=== PATIENT | female | born 1990 | race African-American/Black ===

== ENCOUNTER 2018-03-26 13:39 | Emergency (ER) | payer MEDICAID ==
[~2018-03-26] VITALS: Ht 162.6 cm; Wt 90.7 kg
[2018-03-26] MEDS ORDERED: SODIUM CHLORIDE 0.9% 500 ML IVB ONE (13:48)
[2018-03-26] MEDS ORDERED: MORPHINE SULFATE 10 MG/ML INJ 1ML SDV IV ONE (14:00)
[2018-03-26] MEDS ORDERED: ONDANSETRON HCL 4 MG/2 ML VIAL IV ONE (14:00)
[2018-03-26 15:25] LABS: Basophils # (auto) 0.1 uL; Basophils % (auto) 0.4 % (0.0-2.0); Eosinophils # (auto) 0 uL; Lymphocytes # (auto) 1.1 uL; Monocytes # (auto) 0.4 uL; Monocytes % (auto) 2.5 % (0.0-12.0)
[2018-03-26 15:27] LABS: Eosinophils % (auto) 0.1 % (0.0-7.0); Hematocrit 30.2 % (36.0-46.0); Hemoglobin 9.2 g/dL (12.2-16.2); Lymphocytes % (auto) 7.1 % (10.0-50.0); Mean Corpuscular Hemoglobin 22.5 pg (28.0-32.0); Mean Corpuscular Hgb Conc. 30.5 g/dL (32.0-36.0); Mean Corpuscular Volume 73.7 fL (80.0-100.0); Neutrophils # (auto) 14.5 uL; Neutrophils % (auto) 89.9 % (37.0-80.0); Nucleated Red Blood Cells % 0.1 %; Platelet Count (auto) 473 10^3/uL (140-450); Red Blood Cells 4.09 10^6/uL (4.0-5.20); Red Cell Distribution Width 19.2 % (11.8-14.3); White Blood Cell 16.1 10^3/uL (4.4-10.8)
[2018-03-26 15:48] LABS: Potassium 3.8 mmol/L (3.5-5.1)
[2018-03-26 15:55] LABS: Albumin 3.6 g/dL (3.4-5.0); BUN/Creatinine Ratio 12.2; Bilirubin, Total 0.3 mg/dL (0.2-1.0); Calcium 8.8 mg/dL (8.5-10.1); Total Protein 8.7 g/dL (6.4-8.2)
[2018-03-26 17:25] LABS: Urine Bacteria NONE SEEN /hpf (None Seen); Urine Blood 2+ /uL (Negative); Urine Specific Gravity 1.016 (1.001-1.035); Urine WBC 14 /hpf (0 - 5)
[2018-03-26 18:44] VITALS: BP 116/68
== END 2018-03-26 18:57 | disposition home or self-care (01) ==
LOC: ER 13:39 → EDBD 13:39 → ER 18:57
DX: N39.0 Urinary tract infection, site not specified (principal); N93.9 Abnormal uterine and vaginal bleeding, unspecified; J45.909 Unspecified asthma, uncomplicated
CPT/HCPCS: 36415; 76856; 80053; 81001; 83690; 84702; 85025; 94761; 96374; 96375; 99284; J2270; J2405